=== PATIENT | female | born 1970 | race Caucasian/White ===

== ENCOUNTER 2023-10-02 15:31 | Emergency (ER) | payer SELFPAY ==
[2023-10-02 15:34] VITALS: BP 120/91
[2023-10-02 19:15] VITALS: BP 120/81
--- NOTE | 2023-10-02 23:18 | ED.MUSCINJ ---
HPI-Injury
General
Chief Complaint: Musculo-Skeletal Complaint
Source: patient
Exam Limitations: none
Time Seen by Provider: 10/02/23 18:49
Nursing documentation reviewed up to this point in time: agreed with
History of Present Illness-Injury
Initial Injury comments:
Patient to Ed with complaint of pain to left groin after stretching. States she was seen at [facility] last week. Had neg. CT of hip and pelvis. She returns here today because pain continues. No fever/chills. No prior history of same.
Past History
Past History
ED Past Medical History: Other (Chronic neck/back pain, neuropathy Biliary colic)
ED Past Surgical History: Orthopedic (Carpal tunnel repair X 2)
Social History
Tobacco: Smoker
Alcohol: None
Personal: Single
Living: with family
Review of Systems
Review of Systems
Allergies reviewed?: Yes
All Other Systems: ROS reviewed and negative except as documented in HPI and ROS
Constitutional: Reports no symptoms
EENT: Reports no symptoms
Respiratory: Reports no symptoms
Cardiac: Reports no symptoms
ABD/GI: Reports no symptoms
: Reports no symptoms
Musculoskeletal: Reports back pain
Skin: Reports no symptoms
Neurological: Reports no symptoms
Psychiatric: Reports no symptoms
Musculoskeletal Injury Exam
Musculoskeletal Injury Exam
left groin:
Pain with Movement?: Moderate
Tender to palpation?: None
Soft tissue swelling?: None
External deformity and angulation?: None
Joint effusion?: None
Contusion?: None
Hematoma-local bleeding into tissue?: None
Strain- Sprain- Tear (Connective tissue injury)?: Moderate
Crepitus with movement?: No
Joint instability?: No
Malalignment/deformity?: No
Range of motion: Limited
Distal skin color and temperature: normal-warm & good color
Capillary Refill: normal
Normal distal neurovascular exam?: Yes
Peripheral Pulses: posterior tibial (left): 3+ and dorsalis pedis (left): 3+
Phy Exam
General Physical Exam
General Presentation: well appearing and no apparent distress
General age: appears stated age
General Skin: warm and dry
General Habitus: normal
Gastrointestinal Exam
Gastrointestinal Exam: non tender, soft and no organomegaly
Musculoskeletal Exam
Musculoskeletal Exam: neuro vasc intact
Skin Exam
Skin Exam: normal color, warm/dry and no rash
Psychiatric Exam
Psychiatric Exam: normal mood/affect
*Critical Care Note
Total Time (30-74mins, 75-104mins- exclusive of procedures): Not Applicable
Update Note
Update Note:
Patient to ED with complaint of left groin pain after stretching was seen at [facility] last week for same. CT neg for concerning findings. States she still has pain so she came ti ED fir re-evaluation. No new trauma. No fever/chills. No other
complaints., No further emergent imaging required. WIll discharge home, follow up with pcp and ortho. COnsider outpatient MRI
ED Attending Note
-
Portions of this chart may have been created with voice recognition software.� Occasional wrong word or��sound alike� substitutions may have occurred due to the inherent limitations of voice recognition software.
Discharge Plan
Departure
Patient Disposition: Home (Routine Discharge)
Date of Disposition: 10/02/23
Time of Disposition: 19:03
Patient with high blood pressure during this ER visit?: No
Condition: Good
Covid-19: Not Applicable
Discharge Problem:
Inguinal strain
Instructions: Muscle Strain (DC), How to Use Crutches, Ibuprofen, Using Cold for Pain
Prescriptions:
New
oxycodone 5 mg tablet
5 mg PO Q4H PRN (Reason: Pain) Qty: 10 0RF
ibuprofen 600 mg tablet
600 mg PO Q6H PRN (Reason: Pain) Qty: 20 0RF
No Action
sucralfate [Carafate] 1 gram tablet
1 g PO ACHS MDD GI issues Qty: 40 0RF
pantoprazole [Protonix] 40 mg tablet,delayed release (DR/EC)
40 mg PO DAILY Qty: 10 0RF
Referrals:
UNKNOWN - PT DOES,NOT KNOW [Family Provider] -
Activity Restrictions/Additional Instructions:
Follow up with your family doctor in the AM
Interventions
Interventions:
*Risk Screen - Suicide Last Done: 10/02/23 19:14
*General Assessment Last Done: 10/02/23 19:14
*Neglect/Abuse Screening Last Done: 10/02/23 19:14
ED- Fall Risk Assessment Last Done: 10/02/23 19:14
*ED COVID-19 Vaccine History Last Done: 10/02/23 19:14
*Nursing Disposition Last Done: 10/02/23 19:16
ED-Musculoskeletal Assessment Last Done: 10/02/23 19:14
Discharge Date and Time
Discharge Date/Time: 10/02/23 19:27
Print Language: NEPALESE
== END 2023-10-02 19:27 | disposition home or self-care (01) ==
LOC: EMR 15:31
PROVIDERS: EMERGENCY PHYSICIAN Emergency Medicine
DX: S39.011A Strain of muscle, fascia and tendon of abdomen, initial encounter (principal); X58.XXXA Exposure to other specified factors, initial encounter; Y93.E5 Activity, floor mopping and cleaning; M54.2 Cervicalgia; M54.9 Dorsalgia, unspecified; G89.29 Other chronic pain; G62.9 Polyneuropathy, unspecified; F17.200 Nicotine dependence, unspecified, uncomplicated
CPT/HCPCS: 99283